=== PATIENT | male | born 1965 | race Caucasian/White ===

== ENCOUNTER 2016-08-18 12:27 | Outpatient (CLI) | payer OTHER ==
--- NOTE | 2016-08-18 14:13 | MRI Report ---
EXAM: MRI CERVICAL SPINE WITHOUT CONTRAST EXAM DATE: 08/18/2016 01:08 PM. CLINICAL HISTORY: Right hand pain, numbness, and tingling. Neck pain. COMPARISONS: Cervical spine MRI from 12/02/2006. TECHNIQUE: Multiplanar, multisequence T1-weighted and fluid-sensitive sequences of the cervical spine without contrast. Other: None. FINDINGS: Neurologic Structures: The visualized posterior fossa structures are unremarkable. No signal abnormal ity in the visualized spinal cord. Alignment: Normal. No scoliosis or spondylolisthesis. Bone Marrow: No gross fractures or bone lesions. No marrow edema. Interspace Levels/Facets: The craniocervical junction is unremarkable. C1-C2: Unremarkable. C2-C3: Unremarkable. C3-C4: Unremarkable. C4-C5: Minimal posterior disk bulge with posterior annular fissure. Minimal canal narrowing. No malini inal stenoses. No change. C5-C6: Small posterior left paracentral disk protrusion/osteophyte complex and small to moderate-size d posterior right paracentral and foraminal disk protrusion/osteophyte complex. Small to moderate-siz ed left anterolateral osteophytes. Mild canal stenosis. Moderate to severe narrowing of the entry zon e of the exiting right C6 nerve and moderate to severe right foraminal stenosis. Moderate narrowing o f the entry zone of the exiting left C6 nerve and [id number] left foraminal stenosis. No change . C6-C7: Small posterior central disk protrusion. Small posterior right paracentral and foraminal disk protrusion/osteophyte complex. Bilateral uncovertebral joint osteophytes. Ttyr-bq-vrbydooz canal sten osis. No cord impingement. Moderate narrowing of the entry zone of the exiting right C7 nerve. Modera te to severe left and [id number]-[id number] right foraminal stenoses. The degree of foraminal stenosis has increased since the previous study. C7-T1: Unremarkable. Musculature: Normal. No edema or fatty atrophy. Other: The right vertebral artery is diffusely small suggestive of a nondominant right vertebral kanwal ry variant. IMPRESSION: 1. Multilevel degenerative disk changes and osteophytosis. The more significant levels are at C5-C6 a nd C6-C7. 2. Small posterior left paracentral disk protrusion/osteophyte complex and small to moderate-sized po sterior right paracentral and foraminal disk protrusion/osteophyte complex at C5-C6. Mild canal steno sis. Moderate to severe narrowing of the entry zone of the exiting right C6 nerve and moderate to sev ere right foraminal stenosis. Moderate narrowing of the entry zone of the exiting left C6 nerve and m [id number] left foraminal stenosis. No change. 3. Small posterior central disk protrusion and small posterior right paracentral and foraminal disk p rotrusion/osteophyte complex at C6-C7. Mild to moderate canal stenosis. Moderate narrowing of the ent ry zone of the exiting right C7 nerve. Moderate to severe left and [id number] right foraminal s tenoses which has increased in degree since the previous study. [facility] Referring Provider Line: [phone] SITE ID: [id number]
== END 2016-08-18 12:28 | disposition home or self-care (01) ==
LOC: DI 12:27
PROVIDERS: ATTEND Physician Assistant
DX: M50.222 Other cervical disc displacement at C5-C6 level (principal); M50.321 Other cervical disc degeneration at C4-C5 level
CPT/HCPCS: 72141

== ENCOUNTER 2021-12-31 07:37 | Outpatient (CLI) | payer OTHER ==
--- NOTE | 2021-12-31 13:33 | MRI Report ---
PROCEDURE: Knee LT W/O INDICATIONS: PAIN IN LEFT KNEE TECHNIQUE: Noncontrast sagittal PD fast spin echo and T2 fast spin echo with fat saturation, sagittal 3-D gradie nt sequence with fat saturation; coronal T1 spin echo and PD fast spin echo with fat saturation, and axial PD fast spin echo with fat saturation through the knee. COMPARISON: None. FINDINGS: Image quality: Excellent. Menisci: The medial and lateral menisci demonstrate normal morphology and internal signal. The meni scal root ligaments appear intact. Cruciate ligaments: The anterior and posterior cruciate ligaments appear intact. There is moderate T2 signal elevation along the course of the anterior cruciate ligament, consistent with myxoid degene ration. Medial structures: The medial collateral ligament appears intact. Visualized portions of the pes ans erinus tendons appear normal. No abnormal bursal fluid. Lateral structures: The lateral collateral ligament, long and short heads of the biceps femoris tend on appear intact. The popliteus tendon appears normal. Iliotibial band appears normal. Anterior structures: The quadriceps and patellar tendons appear intact. Patellar alignment is selma l. No femoral trochlear dysplasia or ventral trochlear prominence. No edema in the infrapatellar fa t pad. Bones and cartilage: No bone marrow contusions or fractures. The cartilage of the medial and latera l femorotibial compartments, as well as the patellofemoral compartment, appears normal in thickness. Joint space: There is a moderate knee joint effusion. No Campoverde's cyst. Normal appearing synovial pl icae are incidentally noted. IMPRESSION: 1. No internal derangement. 2. Knee joint effusion. 3. Myxoid degeneration of the anterior cruciate ligament. Reviewed by: Doron Cantor MD on 12/31/2021 1:32 PM PDT Approved by: Doron Cantor MD on 12/31/2021 1:32 PM PDT Station ID: [id number]
== END 2021-12-31 07:38 | disposition home or self-care (01) ==
LOC: DI 07:37
PROVIDERS: ATTEND Nurse Practitioner Family
DX: M25.462 Effusion, left knee (principal); M23.611 Other spontaneous disruption of anterior cruciate ligament of right knee